=== PATIENT | female | born 1980 | race Caucasian/White ===

== ENCOUNTER 2021-07-15 22:31 | Emergency (ER) | payer OTHER ==
[~2021-07-15] VITALS: Ht 167.6 cm; Wt 81.6 kg
[2021-07-15 23:40] VITALS: BP 142/96
== END 2021-07-16 03:20 | disposition home or self-care (01) ==
LOC: ED 23:41
DX: K62.5 Hemorrhage of anus and rectum (principal); R10.32 Left lower quadrant pain
CPT/HCPCS: 36415; 74177; 80053; 81003; 85025; 96361; 96374; 96375; 99285; J2270; J2405; J7030; Q9967